=== PATIENT | female | born 1950 | race Caucasian/White ===

== ENCOUNTER → 2017-04-26 | Outpatient (CLI) | payer MEDICARE, OTHER ==
[~2017-04-26] MED LIST: ASPI81EC PO; ATOR80 PO; CALTRATE; CIME300; CITA20; CITA20 PO; Citalopram HBr40 MG PO; GLIM2 PO; METF500; METF500 PO; OLME20; OMEP20ER PO; OXYACE5T PO; PROM25 PO; RALO60 PO; ROSU10TA PO; SUCR1 PO; VYTORIN; [UNRECOGNIZED DRUG - OTHER]
== END ==
LOC: LAB SHORT 11:21 → PLD 11:21
DX: D04.62 Carcinoma in situ of skin of left upper limb, including shoulder (principal)
CPT/HCPCS: 88305

== ENCOUNTER → 2018-05-03 | Outpatient (CLI) | payer MEDICARE, OTHER | END | disposition home or self-care (01) | LOC: PLD 11:46 → LAB SHORT 11:46 | DX: D48.5 Neoplasm of uncertain behavior of skin (principal) | CPT/HCPCS: 88305 ==

== ENCOUNTER 2019-01-13 09:32 | Day surgery (SDC) | payer MEDICARE, OTHER ==
[~2019-01-13] VITALS: Ht 160 cm; Wt 89.1 kg
[~2019-01-13 09:32] MED LIST changes: +LIRA0.6P
== END 2019-01-13 12:09 | disposition home or self-care (01) ==
LOC: ORSCSDS 09:32
PROVIDERS: Internal Medicine Gastroenterology
PROC: 0DJD8ZZ Inspection of Lower Intestinal Tract, Via Natural or Artificial Opening Endoscopic (ICD-10-PCS; principal; 2019-01-13 11:00)
DX: R93.3 Abnormal findings on diagnostic imaging of other parts of digestive tract (principal); K64.8 Other hemorrhoids; Z80.0 Family history of malignant neoplasm of digestive organs; I10 Essential (primary) hypertension; G47.33 Obstructive sleep apnea (adult) (pediatric); E11.9 Type 2 diabetes mellitus without complications; E78.5 Hyperlipidemia, unspecified; F32.9 Major depressive disorder, single episode, unspecified; Z79.899 Other long term (current) drug therapy
CPT/HCPCS: 82947; J2704; J7120

== ENCOUNTER → 2020-07-01 | Outpatient (CLI) | payer MEDICARE, OTHER | LOC: LAB 13:58 → LAB SHORT 13:58 | DX: D48.5 Neoplasm of uncertain behavior of skin (principal); Z88.5 Allergy status to narcotic agent; Z88.8 Allergy status to other drugs, medicaments and biological substances | CPT/HCPCS: 88305 ==

== ENCOUNTER → 2022-12-25 | Outpatient (CLI) | payer MEDICARE, BC, OTHER | END | disposition home or self-care (01) | LOC: LAB SHORT 13:54 → LAB 13:54 | DX: R30.0 Dysuria (principal) | CPT/HCPCS: 87077; 87086; 87186 ==

== ENCOUNTER 2023-03-05 07:27 | Day surgery (SDC) | payer MEDICARE, BC, OTHER | END 2023-03-05 22:34 | disposition home or self-care (01) | LOC: CT 07:27 | DX: I25.10 Atherosclerotic heart disease of native coronary artery without angina pectoris (principal); R00.2 Palpitations; E11.9 Type 2 diabetes mellitus without complications; I47.10 Supraventricular tachycardia, unspecified | CPT/HCPCS: 75574; Q9967 ==

== ENCOUNTER 2023-11-02 12:38 | Day surgery (SDC) | payer MEDICARE, BC, OTHER ==
[~2023-11-02] VITALS: Ht 162.6 cm; Wt 87.4 kg
[~2023-11-02 12:38] MED LIST changes: +Balanced Salt Epinephrine Irrigation Solution 500 mL IR SCH; +FentaNYL Citrate 50 MCG/ML 2 ML Injection ONE; +Lidocaine HCl/Pf 1% 5 ML VIAL XX SCH; +Midazolam HCl 1MG / ML 2ML Vial ONE; +Moxifloxacin HCL 0.5 MG/0.1 ML 0.4MLSYR LEFTEYE SCH; +NS 500 ML IV ONE; +PHENYLEPHRINE\\TROPICAMIDE\\TETRACAINE OPHTHALMIC DILATING SOLN LEFTEYE PRN; +Povidone-Iodine 450 DROP/30 ML Solution LEFTEYE SCH
[2023-11-02] MEDS ORDERED: DULOXETINE HCL60 M1 PO (12:52)
[2023-11-02] MEDS ORDERED: OZEMPIC0.25 MG/02 SQ (12:52)
[2023-11-02] MEDS ORDERED: Toprol Xl50 MG PO (12:53)
[2023-11-02] MEDS ORDERED: MELO7.5 PO (12:53)
[2023-11-02] MEDS ORDERED: LISI5 PO (12:54)
[2023-11-02] MEDS ORDERED: Aspir 8181 MG PO (12:54)
--- NOTE | 2023-11-02 12:58 | NUR ---
11/02/23 1258 Lynsey Nevarez AT 1252 PLEDGET AT 1252
[2023-11-02] MEDS ORDERED: NS 500 ML IV ONE (13:13)
[2023-11-02] MEDS ORDERED: Ondansetron HCl 2 MG / ML 2ML Vial ONE (13:25)
[2023-11-02] MEDS ORDERED: Acetaminophen 500 MG Tab ONE (14:06)
[2023-11-02 14:12] VITALS: BP 117/63
== END 2023-11-02 14:19 | disposition home or self-care (01) ==
LOC: ORSCSDS 12:38
PROVIDERS: Student in an Organized Health Care Education/Training Program
PROC: 08RK3JZ Replacement of Left Lens with Synthetic Substitute, Percutaneous Approach (ICD-10-PCS; principal; 2023-11-02 13:45)
DX: E11.36 Type 2 diabetes mellitus with diabetic cataract (principal); H25.813 Combined forms of age-related cataract, bilateral; H52.202 Unspecified astigmatism, left eye; I10 Essential (primary) hypertension; M79.7 Fibromyalgia; E78.00 Pure hypercholesterolemia, unspecified; F32.A Depression, unspecified; Z79.82 Long term (current) use of aspirin; Z79.85 Long-term (current) use of injectable non-insulin antidiabetic drugs; Z79.899 Other long term (current) drug therapy
CPT/HCPCS: 82947; A9270; J2250; J2405; J3010; J7040; V2632

== ENCOUNTER 2023-11-10 12:18 | Day surgery (SDC) | payer MEDICARE, BC, OTHER ==
[~2023-11-10] VITALS: Ht 162.6 cm; Wt 87.7 kg
[~2023-11-10 12:18] MED LIST changes: +Aspir 8181 MG PO; +DULOXETINE HCL60 M1 PO; -FentaNYL Citrate 50 MCG/ML 2 ML Injection ONE; +LISI5 PO; +MELO7.5 PO; -Midazolam HCl 1MG / ML 2ML Vial ONE; -Moxifloxacin HCL 0.5 MG/0.1 ML 0.4MLSYR LEFTEYE SCH; +Moxifloxacin HCL 0.5 MG/0.1 ML 0.4MLSYR RIGHTEYE SCH; +OZEMPIC0.25 MG/02 SQ; -PHENYLEPHRINE\\TROPICAMIDE\\TETRACAINE OPHTHALMIC DILATING SOLN LEFTEYE PRN; +PHENYLEPHRINE\\TROPICAMIDE\\TETRACAINE OPHTHALMIC DILATING SOLN RIGHTEYE PRN; -Povidone-Iodine 450 DROP/30 ML Solution LEFTEYE SCH; +Povidone-Iodine 450 DROP/30 ML Solution RIGHTEYE SCH; +Toprol Xl50 MG PO
--- NOTE | 2023-11-10 12:52 | NUR ---
11/10/23 1252 Lynsey Nevarez AT 1245 PLEDGET AT 1242
[2023-11-10] MEDS ORDERED: NS 500 ML IV ONE (12:56)
[2023-11-10] MEDS ORDERED: Midazolam HCl 1MG / ML 2ML Vial ONE (13:22)
[2023-11-10] MEDS ORDERED: Ondansetron HCl 2 MG / ML 2ML Vial ONE (13:23)
[2023-11-10] MEDS ORDERED: Tetracaine HCl 0.5% Opth Soln 15 ml RIGHTEYE ONE (13:23)
[2023-11-10] MEDS ORDERED: Acetaminophen 500 MG Tab ONE (14:05)
[2023-11-10 14:26] VITALS: BP 128/69
--- NOTE | 2023-11-10 14:26 | NUR ---
11/10/23 1426 Lucian Nice PT REPORTED 4/10 TOLERABLE PAIN UPON D/C. SHE EXPRESSED READINESS TO RETURN HOME.
== END 2023-11-10 14:16 | disposition home or self-care (01) ==
LOC: ORSCSDS 12:18
PROVIDERS: Student in an Organized Health Care Education/Training Program
PROC: 08RJ3JZ Replacement of Right Lens with Synthetic Substitute, Percutaneous Approach (ICD-10-PCS; principal; 2023-11-10 13:30)
DX: E11.36 Type 2 diabetes mellitus with diabetic cataract (principal); H25.811 Combined forms of age-related cataract, right eye; H52.201 Unspecified astigmatism, right eye; Z96.1 Presence of intraocular lens; I10 Essential (primary) hypertension; E78.00 Pure hypercholesterolemia, unspecified; F32.A Depression, unspecified; M79.7 Fibromyalgia; Z79.82 Long term (current) use of aspirin; Z79.85 Long-term (current) use of injectable non-insulin antidiabetic drugs; Z79.899 Other long term (current) drug therapy
CPT/HCPCS: 82947; A9270; J2250; J2405; J7040; V2632

== ENCOUNTER 2024-05-29 06:34 | Day surgery (SDC) | payer MEDICARE, BC, OTHER ==
[~2024-05-29] VITALS: Ht 162.6 cm; Wt 89.4 kg
[~2024-05-29 06:34] MED LIST changes: -Balanced Salt Epinephrine Irrigation Solution 500 mL IR SCH; +Lidocaine 1%-Epineph 1:100000 20 ML MDV ONE; -Lidocaine HCl/Pf 1% 5 ML VIAL XX SCH; -Moxifloxacin HCL 0.5 MG/0.1 ML 0.4MLSYR RIGHTEYE SCH; -PHENYLEPHRINE\\TROPICAMIDE\\TETRACAINE OPHTHALMIC DILATING SOLN RIGHTEYE PRN; -Povidone-Iodine 450 DROP/30 ML Solution RIGHTEYE SCH
[2024-05-29] MEDS ORDERED: CeFAZolin Sodium 2,000 MG VIAL ONE (06:48)
[2024-05-29] MEDS ORDERED: Vitamin D1000 UNI1 PO (06:54)
[2024-05-29] MEDS ORDERED: SYSTANE 0.4-0.315 ML BOTHEYES (06:59)
[2024-05-29] MEDS ORDERED: VITAMIN B121000 MCG PO (06:59)
[2024-05-29] MEDS ORDERED: propofoL 20 ML IV ONE ×2 (07:07→07:11)
[2024-05-29] MEDS ORDERED: NS 500 ML IV ONE (07:12)
[2024-05-29] MEDS ORDERED: Acetaminophen 500 MG Tab ONE (07:20)
--- NOTE | 2024-05-29 07:25 | NUR ---
05/29/24 0725 Tita Winter TIME OUT PERFORMED AT BEDSIDE WITH DR ALMEIDA AT 0720 IMMEDIATELY PRIOR TO INJECTION BY DR ALMEIDA OF 8ML OF SOLUTION CONSISTING OF 9ML 1% LIDOCAINE WITH EPI [id number] AND 1ML 8.4% SODIUM BICARBONATE INTO R HAND. PATIENT TOLERATED PROCEDURE WELL.
[2024-05-29 08:26] VITALS: BP 109/59
--- NOTE | 2024-05-29 08:33 | NUR ---
05/29/24 8531 AVANI ALVES C/O NAUSEA, MINIMAL AND TINGE OF A HEADACHE. EATING CRACKERS AND HAS DIET PEPSI, SHE HOPES WILL HELP WITH HER DUNLAP.
== END 2024-05-29 09:03 | disposition home or self-care (01) ==
LOC: ORSCSDS 06:34
PROVIDERS: Orthopaedic Surgery
PROC: 01N54ZZ Release Median Nerve, Percutaneous Endoscopic Approach (ICD-10-PCS; principal; 2024-05-29 08:00)
DX: G56.03 Carpal tunnel syndrome, bilateral upper limbs (principal); F32.A Depression, unspecified; E11.9 Type 2 diabetes mellitus without complications; E78.00 Pure hypercholesterolemia, unspecified; I10 Essential (primary) hypertension; R00.0 Tachycardia, unspecified; Z79.85 Long-term (current) use of injectable non-insulin antidiabetic drugs; Z79.82 Long term (current) use of aspirin; Z79.899 Other long term (current) drug therapy
CPT/HCPCS: 82947; A9270; J0690; J2704; J7040